=== PATIENT | male | born 1990 | race Two or more races ===

== ENCOUNTER 2017-08-21 18:04 | Emergency (ER) | payer MEDICAID, OTHER ==
[~2017-08-21] VITALS: Ht 172.7 cm; Wt 78.0 kg
[2017-08-21 18:04] VITALS: BP 129/78
== END 2017-08-21 23:00 | disposition left against medical advice (07) ==
LOC: ER 20:20
DX: Z53.21 Procedure and treatment not carried out due to patient leaving prior to being seen by health care provider (principal)

== ENCOUNTER 2018-08-31 05:44 | Emergency (ER) | payer MEDICAID | END 2018-08-31 07:20 | disposition left against medical advice (07) | LOC: ER 07:19 | DX: Z53.21 Procedure and treatment not carried out due to patient leaving prior to being seen by health care provider (principal) ==